=== PATIENT | male | born 2000 | race Caucasian/White ===

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

== ENCOUNTER 2020-11-20 21:42 | Observation (INO) ==
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
[2020-11-20 23:43] LABS: Basophils # (auto) 0.02 K/uL (0-0.2); Basophils % (auto) 0.3 %; Eosinophils # (auto) 0.13 K/uL (0-0.5); Eosinophils % (auto) 1.7 %; Hematocrit (blood only) 41.1 % (42-52); Hemoglobin 14.2 g/dL (14.0-18.0); Immature Granulocytes # (auto) 0.02 K/uL (0.00-0.02); Immature Granulocytes % (auto) 0.3 %; Lymphocytes # (auto) 1.66 K/uL (1.2-3.4); Lymphocytes % (auto) 21.2 %; Mean Corpuscular Hemoglobin 29.2 pg (25-34); Mean Corpuscular Hgb Conc 34.5 g/dL (32-36); Mean Corpuscular Volume 84.4 fL (80-100); Mean Platelet Volume 10.4 fL (7.4-10.4); Monocytes # (auto) 0.56 K/uL (0.11-0.59); Monocytes % (auto) 7.2 %; Neutrophils # (auto) 5.44 K/uL (1.4-6.5); Neutrophils % (auto) 69.3 %; Platelet Count 231 K/uL (130-400); RDW Coefficient of Variation 12.4 % (11.5-14.5); RDW Standard Deviation 37.9 fL (36.4-46.3); Red Blood Count 4.87 M/uL (4.7-6.1); White Blood Count 7.83 K/uL (4.8-10.8)
[2020-11-21 00:02] LABS: Albumin Level 4.5 gm/dl (3.4-5.0); BUN Creatinine Ratio 9.9 (10-20); Calcium 9.4 mg/dl (8.5-10.1); Creatinine Clr Calc Pharmacy 165.1 ml/min; Est GFR (African American) 146.8 ml/min; Est GFR (Non-African American) 126.7 ml/min; Potassium 3.8 mmol/L (3.5-5.1)
[2020-11-21 00:05] LABS: Albumin Globulin Ratio 1.6 (0.9-2); Bilirubin,Total 0.5 mg/dl (0.2-1); Globulin 2.9 gm/dl (2.5-4.0); Total Protein 7.4 gm/dl (6.4-8.2)
[2020-11-21] MEDS: SODIUM CHLORIDE 0.9% 500 ML IV SCH ×2 (01:10→05:43)
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
[2020-11-21] MEDS ORDERED: hydrOXYzine HCl 25 MG TAB PO PRN (05:30)
[2020-11-21] MEDS: SODIUM CHLORIDE 0.9% 1000ML 1,000 ML IV SCH ×3 (05:47→20:22)
--- NOTE | 2020-11-21 08:15 | Hospitalist Progress Note ---
Date of Service November 21, 2020 Assessment & Plan (1) Dysphagia: Plan: 20yo Male presents with Dysphagia PMH GERD fundoplication 1) Dysphagia Present since fundoplication, cannot swallow solids or liquids. In ED, placed on IVF. Patient cannot swallow oral medications. GI consulted, plan for EGD tomorrow with possible dilation. -if stricture not present, consider swallow study -continue IVF 2) Esophageal Stricture -see above 3) GERD -continue home medications when possible 4) Anxiety -continue home medications when possible -patient NPO, given ativan IV PRN 5) Austism Spectrum Disorder Patient is high functioning, understands condition. His mother is available for additional questions. (2) Esophageal stricture: (3) GERD (gastroesophageal reflux disease): (4) Anxiety: (5) Autism spectrum disorder: Admission and Anticipated Discharge Date Admission Date: November 21, 2020 Supervising Physician Co-Signing Physician Notes I personally examined the patient and verified all daily points of history and exam, discussed case, and agree with decision making with Dr Griffiths Still cannot tolerate any liquids whenever I see him. GI input appreciatedfor EGD tomorrow. Vitals noted, in general he is awake and alert pleasant no distress. HEENT normocephalic atraumatic mucous membranes moist breathing unlabored no accessory muscle use good effort. Skin shows no rashes no pallor or icterus. Dysphagia/food/liquid intoleranceagree with EGD, suspect stricture. Otherwise as above, appreciate GI input. Subjective 20yo Male presents with dysphagia ongoing since last night, cannot swallow solids or liquids. He has a long GI history, initially had GERD with fun doplication surgery in 2013, 3 years of feeding tube with continuous GERD, esophageal strictures with balloon procedures from GI. He states previous EGD showed active acid reflux, US and XR negative, barium swallow study performed doesn't remember results. He says he has had previous instances of dysphagia ever since his fundoplication, with solid foods but not usually liquids. He states the food feels like it gets caught in his throat before he brings it back up. Patient was seen at bedside, comfortable, didn't get to sleep last night no appetite normal bowel movements. He has met with GI and understands he is getting an EGD scheduled for tomorrow. PMH: high functioning autism, ravin fundoplication, GERD Review of Systems Constitutional: no fever and no chills Respiratory: no cough, no dyspnea and no dyspnea on exertion Cardiovascular: no chest pain and no palpitations Gastrointestinal: + dysphagia; no abdominal pain, no nausea, no vomiting, no constipation and no diarrhea/loose stools Integumentary: no rash Neurologic: no tingling, no numbness, no dizziness and no headache(s) Physical Exam Constitutional: well developed, well nourished, cooperative and comfortable Respiratory: normal respiratory effort, lungs clear to auscultation no respiratory distress and no cough Auscultation: no rales, no rhonchi and no wheezes Cardiovascular: RRR, no murmur, no edema Heart Sounds: normal S1 and normal S2; no gallop, no murmur and no cardiac rub Gastrointestinal (Abdomen): normal bowel sounds, soft, nontender, no hepatosplenomegaly Inspection/Auscultation: abdomen not distended Psychiatric: A+Ox3, euthymic affect Results & Data Results & Data ([facility]) Vital Signs (Past 12 Hours) Vital Signs Temp Pulse Pulse Resp BP BP BP 11/21/20 08:02 37.2 C 75 16 123/71 11/21/20 05:35 36.9 C 87 18 150/83 H 11/21/20 01:00 77 16 122/70 11/21/20 00:30 82 25 H 126/73 11/21/20 00:00 82 19 134/77 11/20/20 23:40 84 18 11/20/20 23:32 77 14 139/75 11/20/20 21:45 36.9 C 91 H 18 119/82 Pulse Ox 11/21/20 08:02 98 11/21/20 05:35 96 11/21/20 01:00 98 11/21/20 00:30 96 11/21/20 00:00 96 11/20/20 23:40 97 11/20/20 23:32 97 11/20/20 21:45 97 Laboratory Results 11/21/20 11/21/20 11/20/20 Range/Units 02:25 02:25 23:25 WBC (4.8-10.8) K/uL RBC (4.7-6.1) M/uL Hgb (14.0-18.0) g/dL Hct (42-52) % MCV (80-100) fL MCH (25-34) pg MCHC (32-36) g/dL RDW Std Deviation (36.4-46.3) fL RDW Coeff of Lisa (11.5-14.5) % Plt Count (130-400) K/uL MPV (7.4-10.4) fL Immature Gran % (Auto) % Neut % (Auto) % Lymph % (Auto) % [place] % (Auto) % Eos % (Auto) % Baso % (Auto) % Neut # (Auto) (1.4-6.5) K/uL Lymph # (Auto) (1.2-3.4) K/uL [place] # (Auto) (0.11-0.59) K/uL Eos # (Auto) (0-0.5) K/uL Baso # (Auto) (0-0.2) K/uL Immature Gran # (Auto) (0.00-0.02) K/uL Sodium 140 (136-145) mmol/L Potassium 3.8 (3.5-5.1) mmol/L Chloride 106 (98-107) mmol/L Carbon Dioxide 31 (21-32) mmol/L Anion Gap 3.0 (3-11) BUN 8 (7-18) mg/dl Creatinine 0.83 (0.6-1.4) mg/dl Est Cr Clr Drug Dosing 165.1 ml/min Est GFR ( Amer) 146.8 ml/min Est GFR (Non-Af Amer) 126.7 ml/min BUN/Creatinine Ratio 9.9 L (10-20) Glucose 87 (70-99) mg/dl Calcium 9.4 (8.5-10.1) mg/dl Total Bilirubin 0.5 (0.2-1) mg/dl AST 14 L (15-37) U/L ALT 21 (12-78) U/L Alkaline Phosphatase 112 (45-117) U/L Total Protein 7.4 (6.4-8.2) gm/dl Albumin 4.5 (3.4-5.0) gm/dl Globulin 2.9 (2.5-4.0) gm/dl Albumin/Globulin Ratio 1.6 (0.9-2) COVID-19 Eval Order Covid19 at [facility] SARS-CoV-2 (PCR) NEGATIVE (Negative) 11/20/20 Range/Units 23:25 WBC 7.83 (4.8-10.8) K/uL RBC 4.87 (4.7-6.1) M/uL Hgb 14.2 (14.0-18.0) g/dL Hct 41.1 L (42-52) % MCV 84.4 (80-100) fL MCH 29.2 (25-34) pg MCHC 34.5 (32-36) g/dL RDW Std Deviation 37.9 (36.4-46.3) fL RDW Coeff of Lisa 12.4 (11.5-14.5) % Plt Count 231 (130-400) K/uL MPV 10.4 (7.4-10.4) fL Immature Gran % (Auto) 0.3 % Neut % (Auto) 69.3 % Lymph % (Auto) 21.2 % [place] % (Auto) 7.2 % Eos % (Auto) 1.7 % Baso % (Auto) 0.3 % Neut # (Auto) 5.44 (1.4-6.5) K/uL Lymph # (Auto) 1.66 (1.2-3.4) K/uL [place] # (Auto) 0.56 (0.11-0.59) K/uL Eos # (Auto) 0.13 (0-0.5) K/uL Baso # (Auto) 0.02 (0-0.2) K/uL Immature Gran # (Auto) 0.02 (0.00-0.02) K/uL Sodium (136-145) mmol/L Potassium (3.5-5.1) mmol/L Chloride (98-107) mmol/L Carbon Dioxide (21-32) mmol/L Anion Gap (3-11) BUN (7-18) mg/dl Creatinine (0.6-1.4) mg/dl Est Cr Clr Drug Dosing ml/min Est GFR ( Amer) ml/min Est GFR (Non-Af Amer) ml/min BUN/Creatinine Ratio (10-20) Glucose (70-99) mg/dl Calcium (8.5-10.1) mg/dl Total Bilirubin (0.2-1) mg/dl AST (15-37) U/L ALT (12-78) U/L Alkaline Phosphatase (45-117) U/L Total Protein (6.4-8.2) gm/dl Albumin (3.4-5.0) gm/dl Globulin (2.5-4.0) gm/dl Albumin/Globulin Ratio (0.9-2) COVID-19 Eval Order SARS-CoV-2 (PCR) (Negative) Medications Administered Current Inpatient Medications Famotidine (Famotidine 20 Mg Tab) 20 mg PO BID ARIANNA Stop: 12/21/20 08:59 Last Admin: 11/21/20 11:14 Dose: Not Given Documented by: Fexofenadine HCl (Fexofenadine Hcl 180 Mg Tab) 180 mg PO DAILY ARIANNA Stop: 12/21/20 08:59 Last Admin: 11/21/20 11:14 Dose: Not Given Documented by: Guanfacine HCl (Guanfacine Hcl 1 Mg Tab) 1 mg PO BID ARIANNA Stop: 12/21/20 08:59 Last Admin: 11/21/20 11:14 Dose: Not Given Documented by: Sodium Chloride (Nss 1000ml) 1,000 mls @ 125 mls/hr IV .Q8H ARIANNA Stop: 12/21/20 05:44 Last Admin: 11/21/20 13:17 Dose: 125 mls/hr Documented by: Pantoprazole Sodium 40 mg/ (Syringe) 10 mls @ 5 mls/min IV BID ARIANNA Stop: 12/21/20 11:14 Last Admin: 11/21/20 11:39 Dose: 5 mls/min Documented by: Lorazepam (Ativan) 0.25 mg in 0.5 mls @ 0.5 mls/min IV Q8H PRN PRN Reason: Anxiety Stop: 12/21/20 12:31 Last Admin: 11/21/20 13:04 Dose: 0.5 mls/min Documented by: Lamotrigine (Lamotrigine 25 Mg Tab) 150 mg PO BID ARIANNA Stop: 12/21/20 08:59 Last Admin: 11/21/20 11:15 Dose: Not Given Documented by: Montelukast Sodium (Montelukast Sodium 10 Mg Tablet) 10 mg PO QPM ARIANNA Stop: 12/21/20 20:59 Multivitamins (Multivitamin Tab) 1 tab PO DAILY ARIANNA Stop: 12/21/20 08:59 Last Admin: 11/21/20 11:15 Dose: Not Given Documented by: Quetiapine Fumarate (Quetiapine Fumarate 200 Mg Tabcr) 400 mg PO QPM ARIANNA Stop: 12/21/20 20:59 Quetiapine Fumarate (Quetiapine Fumarate 50 Mg Tabcr) 100 mg PO QAM ARIANNA Stop: 12/21/20 08:59 Last Admin: 11/21/20 11:15 Dose: Not Given Documented by: Sertraline HCl (Sertraline Hcl 50 Mg Tablet) 75 mg PO DAILY ARIANNA Stop: 12/21/20 08:59 Last Admin: 11/21/20 11:15 Dose: Not Given Documented by: Trazodone HCl (Trazodone Hcl 100 Mg Tab) 100 mg PO HS [facility] Stop: 12/21/20 20:59 Resident Activity Tracking Resident Involvement: Resident Care Provided Care Provided: Adult Hospital Medicine (1) GERD (gastroesophageal reflux disease) Esophagitis presence: esophagitis presence not specified Qualified Code(s): K21.9 - Gastro-esophageal reflux disease without esophagitis
--- NOTE | 2020-11-21 08:44 | XRay Report ---
SOFT TISSUES NECK 2 VIEWS CLINICAL HISTORY: Dysphagia. FINDINGS: AP and lateral views of the soft tissues of the neck are obtained. No prior studies are jimi ilable for comparison at the time of dictation. The soft tissues of the neck are normal in appearance . The airway is patent. No radiodense foreign body is identified. The epiglottis is normal. The preve rtebral/retropharyngeal soft tissues are normal in appearance. The imaged cervical spine appears inta ct. Apical lung parenchyma is clear as imaged. IMPRESSION: No acute abnormality is identified. Electronically signed by: Jamel Garcia M.D. 11/21/2020 8:42 AM
--- NOTE | 2020-11-21 08:45 | XRay Report ---
KUB CLINICAL HISTORY: Dysphagia. FINDINGS: 2 AP supine abdominal radiographs are compared to study dated 09/05/2016. There is a nonobstr ucted abdominal bowel gas pattern. Moderate fecal retention is noted throughout the colon. No evidenc e of intraperitoneal free air is seen on these supine images. There are no abnormal abdominal calcifi cations. Tiny phleboliths are seen in the pelvis. The bony structures appear intact. IMPRESSION: No acute abnormality is identified. Electronically signed by: Jamel Garcia M.D. 11/21/2020 8:43 AM
[2020-11-21] MEDS: FEXOFENADINE HCL 180 MG TAB PO SCH (11:14)
[2020-11-21] MEDS: FAMOTIDINE 20 MG TAB PO SCH ×2 (11:14→19:28)
[2020-11-21] MEDS: guanFACINE HCL 1 MG TAB PO SCH ×2 (11:14→19:28)
[2020-11-21] MEDS: MULTIVITAMIN TAB PO SCH (11:15)
[2020-11-21] MEDS: SERTRALINE HCL 50 MG TABLET PO SCH (11:15)
[2020-11-21] MEDS: QUEtiapine FUMARATE 50 MG TABCR PO SCH (11:15)
[2020-11-21] MEDS: lamoTRIgine 25 MG TAB PO SCH ×2 (11:15→19:29)
[2020-11-21] MEDS: PANTOprazole 40 MG in SYRINGE 0 ML IV SCH ×2 (11:39→20:22)
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
[2020-11-21] MEDS: LORazepam 0.25 MG/0.5 ML VIAL IV PRN ×2 (13:04→22:34)
[2020-11-21] MEDS: QUEtiapine FUMARATE 200 MG TABCR PO SCH (19:29)
[2020-11-21] MEDS: traZODone HCL 100 MG TAB PO SCH (19:29)
[2020-11-21] MEDS: MONTELUKAST SODIUM 10 MG TABLET PO SCH (19:29)
--- NOTE | 2020-11-21 19:37 | Billing Data ---
Date of Service November 21, 2020 Coding Level of Care Code 10401 Subseq Hosp Care Lvl 2
--- NOTE | 2020-11-21 19:37 | Billing Data ---
Date of Service November 21, 2020 Coding Level of Care Code 01711 Subseq Obs Care Lvl 2 Comment disregard 232 - entered in error
--- NOTE | 2020-11-21 20:22 | Billing Data ---
Date of Service November 21, 2020 Coding Level of Care Code INT OBSERVATION CARE 70M LVL 3
[2020-11-22] MEDS ORDERED: ondansetron HCL 4 MG in DEXTROSE 5% 50 ML IV PRN (03:39)
[2020-11-22] MEDS: SODIUM CHLORIDE 0.9% 1000ML 1,000 ML IV SCH ×3 (04:13→22:03)
[2020-11-22] MEDS: ONDANSETRON INJ 2 MG/ML 2 ML VIAL IV PRN ×4 (04:13→23:13)
[2020-11-22 07:47] LABS: Basophils # (auto) 0.01 K/uL (0-0.2); Basophils % (auto) 0.2 %; Eosinophils # (auto) 0.11 K/uL (0-0.5); Eosinophils % (auto) 1.7 %; Hematocrit (blood only) 39.8 % (42-52); Hemoglobin 13.6 g/dL (14.0-18.0); Immature Granulocytes # (auto) 0.01 K/uL (0.00-0.02); Immature Granulocytes % (auto) 0.2 %; Lymphocytes # (auto) 1.43 K/uL (1.2-3.4); Lymphocytes % (auto) 21.6 %; Mean Corpuscular Hemoglobin 28.3 pg (25-34); Mean Corpuscular Hgb Conc 34.2 g/dL (32-36); Mean Corpuscular Volume 82.9 fL (80-100); Mean Platelet Volume 10.2 fL (7.4-10.4); Monocytes # (auto) 0.56 K/uL (0.11-0.59); Monocytes % (auto) 8.5 %; Neutrophils # (auto) 4.49 K/uL (1.4-6.5); Neutrophils % (auto) 67.8 %; Platelet Count 217 K/uL (130-400); RDW Standard Deviation 36.2 fL (36.4-46.3); White Blood Count 6.61 K/uL (4.8-10.8)
[2020-11-22] MEDS: lamoTRIgine 25 MG TAB PO SCH ×2 (08:11→22:05)
[2020-11-22] MEDS: guanFACINE HCL 1 MG TAB PO SCH ×2 (08:11→22:05)
[2020-11-22] MEDS: FEXOFENADINE HCL 180 MG TAB PO SCH (08:11)
[2020-11-22] MEDS: MULTIVITAMIN TAB PO SCH (08:11)
[2020-11-22] MEDS: FAMOTIDINE 20 MG TAB PO SCH ×2 (08:11→22:06)
[2020-11-22] MEDS: SERTRALINE HCL 50 MG TABLET PO SCH (08:12)
[2020-11-22] MEDS: QUEtiapine FUMARATE 50 MG TABCR PO SCH (08:12)
[2020-11-22] MEDS: PANTOprazole 40 MG in SYRINGE 0 ML IV SCH ×2 (08:13→22:06)
[2020-11-22 08:14] LABS: BUN Creatinine Ratio 18.7 (10-20); Blood Urea Nitrogen 12 mg/dl (7-18); Calcium 8.7 mg/dl (8.5-10.1); Carbon Dioxide 24 mmol/L (21-32); Chloride 105 mmol/L (98-107); Creatinine Clr Calc Pharmacy 210.8 ml/min; Est GFR (African American) > 150.0 ml/min; Est GFR (Non-African American) 140.1 ml/min; Glucose 62 mg/dl (70-99); Potassium 4.1 mmol/L (3.5-5.1); Sodium 137 mmol/L (136-145)
[2020-11-22 08:15] LABS: Phosphorus 3.9 mg/dl (2.5-4.9)
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
--- NOTE | 2020-11-22 09:24 | Gastroenterology Progress Note ---
Date of Service November 22, 2020 Assessment & Plan (1) Globus sensation: (2) GERD (gastroesophageal reflux disease): (3) Dysphagia: Plan: Pt is a 20 y/o male w hx of GERD s/p fundoplication w re-do, hx of J tube placement, currently admitted w c/o dysphagia and globus sensation. - PPI IV BID - IVF support - Plan for EGD w possible dilation today Admission and Anticipated Discharge Date Admission Date: November 21, 2020 Supervising Physician Co-Signing Physician Notes I saw and evaluated the patient this morning. He has a history of solid food dysphagia and now liquid dysphagia, upper endoscopy has been requested for further evaluation. The patient does have a fairly complicated history which includes a fundoplication at an early age in addition to multiple occurrences of feeding tube placements. We have discussed the risks of upper endoscopy to include bleeding, infection, perforation and need for follow-up studies. Subjective Pt having acid reflux and some nausea. No vomiting this AM. NPO for EGD today Review of Systems Review of Systems: All systems reviewed & are unremarkable except as noted in HPI & below Physical Exam 2 Constitutional: WD/WN, vitals as above well groomed, cooperative and comfortable Eyes: PERRL, conjunctivae normal, anicteric sclerae ENMT: external ear and nose normal, oropharynx normal Respiratory: normal respiratory effort, lungs clear to auscultation Cardiovascular: RRR, no murmur, no edema Gastrointestinal (Abdomen): normal bowel sounds, soft, nontender, no hepatosplenomegaly Skin: no rashes, warm and dry no jaundice Psychiatric: A+Ox3, euthymic affect Lymphatic: no lymphedema Results & Data ([facility]) Vital Signs (Past 12 Hours) Vital Signs Temp Pulse Resp BP BP Pulse Ox 11/22/20 07:51 36.6 C 84 16 122/67 98 11/21/20 23:07 36.8 C 95 H 18 129/69 96 (1) GERD (gastroesophageal reflux disease) Esophagitis presence: esophagitis presence not specified Qualified Code(s): K21.9 - Gastro-esophageal reflux disease without esophagitis
[2020-11-22] MEDS ORDERED: fentaNYL citrate 100 MCG/2 ML VIAL ONE (09:47)
[2020-11-22] MEDS ORDERED: PROPOFOL IV EMULSION 10 MG/ML 20 ML VIAL IV ONE (10:03)
[2020-11-22] MEDS ORDERED: LIDOCAINE 2% 2 ML VIAL/AMP(20MG/ML) INFIL ONE (10:03)
--- NOTE | 2020-11-22 10:05 | Anesthesiology Progress Note ---
Date of Service November 22, 2020 Anesthesia Post Procedure Vital Signs Vital Signs: Temp Pulse Resp BP BP Pulse Ox 11/22/20 09:33 36.6 C 84 18 145/76 H 99 11/22/20 07:51 36.6 C 84 16 122/67 98 11/21/20 23:07 36.8 C 95 H 18 129/69 96 11/21/20 15:22 37.0 C 88 16 119/61 96 Transfer of Care Handoff Completed per policy Notes Mental Status: alert / awake / arousable and participated in evaluation Patient Amnestic to Procedure: Yes Nausea / Vomiting: adequately controlled Pain: adequately controlled Airway Patency, RR, SpO2: stable & adequate BP & HR: stable & adequate Hydration State: stable & adequate Anesthetic Complications: no major complications apparent and Pt Satisfied with anesthetic care
--- NOTE | 2020-11-22 10:57 | GI REPORT ---
Patient Name: Roman Maradiaga Procedure Date: 11/22/2020 9:34 AM Date of : 2000 Admit Type: Inpatient Age: 20 Gender: Male Attending MD: Frantz Hernandez DO Procedure: Upper GI endoscopy Providers: Frantz Hernandez DO Referring MD: Jan Gordillo MD Indications: Dysphagia Medicines: Monitored Anesthesia Care Complications: No immediate complications. Estimated blood loss: Minimal. Estimated Blood Loss: Estimated blood loss was minimal. Procedure: Pre-Anesthesia Assessment: - Prior to the procedure, a History and Physical was performed, and patient medications, allergies and sensitivities were reviewed. The patient's tolerance of previous anesthesia was reviewed. - The risks and benefits of the procedure and the sedation options and risks were discussed with the patient. All questions were answered and informed consent was obtained. - Patient identification and proposed procedure were verified prior to the procedure by the physician, the nurse and the parlor maid. The procedure was verified in the pre-procedure area in the procedure room. - Pre-procedure physical examination revealed no contraindications to sedation. - ASA Grade Assessment: II - A patient with mild systemic disease. - After reviewing the risks and benefits, the patient was deemed in satisfactory condition to undergo the procedure. - The anesthesia plan was to use monitored anesthesia care (MAC). - Immediately prior to administration of medications, the patient was re-assessed for adequacy to receive sedatives. - The heart rate, respiratory rate, oxygen saturations, blood pressure, adequacy of pulmonary ventilation, and response to care were monitored throughout the procedure. - The physical status of the patient was re-assessed after the procedure. After obtaining informed consent, the endoscope was passed under direct vision. Throughout the procedure, the patient's blood pressure, pulse, and oxygen saturations were monitored continuously. The Endoscope was introduced through the mouth, and advanced to the third part of duodenum. The upper GI endoscopy was accomplished without difficulty. The patient tolerated the procedure well. Findings: No endoscopic abnormality was evident in the esophagus to explain the patient's complaint of dysphagia. It was decided, however, to proceed with dilation of the entire esophagus. A guidewire was placed and the scope was withdrawn. Dilation was performed with a Savary dilator with no resistance at 54 Fr. The dilation site was examined following endoscope reinsertion and showed no change. Biopsies were taken with a cold forceps for histology. The pathology specimen was placed into Bottle A. Estimated blood loss was minimal. Evidence of a Yamilet fundoplication was found in the cardia. The wrap appeared intact. This was traversed. A 5 mm healed ulcer was found on the greater curvature of the gastric body. The scar tissue was healthy in appearance. The examined duodenum was normal. Impression: - No endoscopic esophageal abnormality to explain patient's dysphagia. Esophagus dilated to 54 Fr. Biopsied. - A Yamilet fundoplication was found. The wrap appears intact. - Scar in the gastric body (greater curvature) consistent with prior feeding tube. - Normal examined duodenum. Recommendation: - [facility]. - Advance diet as tolerated today. - Await pathology results. - Return to referring physician, Dr. Nur as previously scheduled. Frantz Hernandez D.O. Frantz Hernandez, 11/22/2020 10:57:02 AM This report has been signed electronically. Note Initiated On: 11/22/2020 9:34 AM Number of Addenda: 0 I attest to the content of the Intraoperative Record and orders documented therein, exceptions below {[id number]}
[2020-11-22] MEDS ORDERED: ACETAMINOPHEN SUSP 325 MG/10.15 ML UDC PO PRN (16:17)
[2020-11-22] MEDS: LORazepam 0.25 MG/0.5 ML VIAL IV PRN ×2 (16:27→23:22)
--- NOTE | 2020-11-22 17:18 | Hospitalist Progress Note ---
Date of Service November 22, 2020 Assessment & Plan (1) Dysphagia: Plan: 20yo Male presents with Dysphagia PMH GERD fundoplication 1) Dysphagia Present since fundoplication, cannot swallow solids or liquids. In ED, placed on IVF. Patient cannot swallow oral medications. GI consulted, performed EGD, found nothing on exam, dilated esophagus and took biopsies, believe symptoms may be psychogenic. Speech therapy consulted, noted patient swallowed saliva from chewing gum, will perform barium swallow test tomorrow. -NPO discontinued, placed on regular diet -continue IVF 2) Esophageal Stricture -see above 3) GERD -continue home medications when possible 4) Anxiety -continue home medications when possible -ordered ativan IV PRN 5) Austism Spectrum Disorder Patient is high functioning, understands condition. His mother is available for additional questions. (2) Esophageal stricture: (3) GERD (gastroesophageal reflux disease): (4) Anxiety: (5) Autism spectrum disorder: Admission and Anticipated Discharge Date Admission Date: November 21, 2020 Supervising Physician Co-Signing Physician Notes I personally examined the patient and verified all daily points of history and exam, discussed case, and agree with decision making with Dr Griffiths Seen post EGD. Later still having dysphagia. Apparently able to swallow s aliva. Vitals noted, in general he is awake and alert pleasant no distress. HEENT normocephalic atraumatic mucous membranes moist breathing unlabored no accessory muscle use good effort. Skin shows no rashes no pallor or icterus. Dysphagia/food/liquid intoleranceEGD without striking findings. We'll utilize barium swallow to evaluate motility. Given that most of it is a globus sensation, may be more potentially psychogenic/anxiety related Subjective 20yo Male presents with dysphagia ongoing since two nights ago, cannot swallow solids or liquids. He has a long GI history, initially had GERD with fundoplication surgery in 2014, 3 years of feeding tube with continuous GERD, esophageal strictures with balloon procedures from GI. He states previous EGD showed active acid reflux, US and XR negative, barium swallow study performed doesn't remember results. He says he has had previous instances of dysphagia ever since his fundoplication, with solid foods but not usually liquids. He states the food feels like it gets caught in his throat before he brings it back up. Patient was seen at bedside, comfortable, slept well no appetite normal urination no bowel movements. Gi performed his EGD this morning, did not find anything significant but dilated his esophagus and took biopsies. Patient was placed on regular diet afterwards, said he still could not swallow, items stuck in throat. Speech therapy was consulted, noted patient was swallowing saliva from chewing gum. Patient has agreed to barium swallow test tomorrow. PMH: high functioning autism, ravin fundoplication, GERD Review of Systems Constitutional: no fever and no chills Respiratory: no cough, no dyspnea and no dyspnea on exertion Cardiovascular: no chest pain and no palpitations Gastrointestinal: + dysphagia; no abdominal pain, no nausea, no vomiting, no constipation and no diarrhea/loose stools Integumentary: no rash Neurologic: no tingling, no numbness, no dizziness and no headache(s) Physical Exam Constitutional: well developed, well nourished, cooperative and comfortable Respiratory: normal respiratory effort, lungs clear to auscultation no respiratory distress and no cough Auscultation: no rales, no rhonchi and no wheezes Cardiovascular: RRR, no murmur, no edema Heart Sounds: normal S1 and normal S2; no gallop, no murmur and no cardiac rub Gastrointestinal (Abdomen): normal bowel sounds, soft, nontender, no hepatosplenomegaly Inspection/Auscultation: abdomen not distended Psychiatric: A+Ox3, euthymic affect Results & Data Results & Data ([facility]) Vital Signs (Past 12 Hours) Vital Signs Temp Pulse Resp BP BP Pulse Ox 11/22/20 15:27 36.8 C 71 16 125/72 98 11/22/20 10:31 84 20 126/70 98 11/22/20 10:16 79 18 116/65 96 11/22/20 09:59 83 12 105/53 L 96 11/22/20 09:33 36.6 C 84 18 145/76 H 99 11/22/20 07:51 36.6 C 84 16 122/67 98 Laboratory Results 11/22/20 11/22/20 Range/Units 07:29 07:29 WBC 6.61 (4.8-10.8) K/uL RBC 4.80 (4.7-6.1) M/uL Hgb 13.6 L (14.0-18.0) g/dL Hct 39.8 L (42-52) % MCV 82.9 (80-100) fL MCH 28.3 (25-34) pg MCHC 34.2 (32-36) g/dL RDW Std Deviation 36.2 L (36.4-46.3) fL RDW Coeff of Lisa 12.0 (11.5-14.5) % Plt Count 217 (130-400) K/uL MPV 10.2 (7.4-10.4) fL Immature Gran % (Auto) 0.2 % Neut % (Auto) 67.8 % Lymph % (Auto) 21.6 % Terrell % (Auto) 8.5 % Eos % (Auto) 1.7 % Baso % (Auto) 0.2 % Neut # (Auto) 4.49 (1.4-6.5) K/uL Lymph # (Auto) 1.43 (1.2-3.4) K/uL Terrell # (Auto) 0.56 (0.11-0.59) K/uL Eos # (Auto) 0.11 (0-0.5) K/uL Baso # (Auto) 0.01 (0-0.2) K/uL Immature Gran # (Auto) 0.01 (0.00-0.02) K/uL Sodium 137 (136-145) mmol/L Potassium 4.1 (3.5-5.1) mmol/L Chloride 105 (98-107) mmol/L Carbon Dioxide 24 (21-32) mmol/L Anion Gap 8.0 (3-11) BUN 12 (7-18) mg/dl Creatinine 0.65 (0.6-1.4) mg/dl Est Cr Clr Drug Dosing 210.8 ml/min Est GFR ( Amer) > 150.0 ml/min Est GFR (Non-Af Amer) 140.1 ml/min BUN/Creatinine Ratio 18.7 (10-20) Glucose 62 L (70-99) mg/dl Calcium 8.7 (8.5-10.1) mg/dl Phosphorus 3.9 (2.5-4.9) mg/dl Magnesium 2.0 (1.8-2.4) mg/dl Medications Administered Current Inpatient Medications Acetaminophen (Acetaminophen Susp 325 Mg/10.15 Ml Udc) 650 mg PO Q6H PRN PRN Reason: Pain Stop: 12/22/20 16:16 Last Admin: 11/22/20 16:27 Dose: 650 mg Documented by: Famotidine (Famotidine 20 Mg Tab) 20 mg PO BID ARIANNA Stop: 12/21/20 08:59 Last Admin: 11/22/20 08:11 Dose: Not Given Documented by: Fexofenadine HCl (Fexofenadine Hcl 180 Mg Tab) 180 mg PO DAILY ARIANNA Stop: 12/21/20 08:59 Last Admin: 11/22/20 08:11 Dose: Not Given Documented by: Guanfacine HCl (Guanfacine Hcl 1 Mg Tab) 1 mg PO BID ARIANNA Stop: 12/21/20 08:59 Last Admin: 11/22/20 08:11 Dose: Not Given Documented by: Sodium Chloride (Nss 1000ml) 1,000 mls @ 125 mls/hr IV .Q8H ARIANNA Stop: 12/21/20 05:44 Last Admin: 11/22/20 13:13 Dose: 125 mls/hr Documented by: Pantoprazole Sodium 40 mg/ (Syringe) 10 mls @ 5 mls/min IV BID ARIANNA Stop: 12/21/20 11:14 Last Admin: 11/22/20 08:13 Dose: 5 mls/min Documented by: Lorazepam (Ativan) 0.25 mg in 0.5 mls @ 0.5 mls/min IV Q8H PRN PRN Reason: Anxiety Stop: 12/21/20 12:31 Last Admin: 11/22/20 16:27 Dose: 0.5 mls/min Documented by: Lamotrigine (Lamotrigine 25 Mg Tab) 150 mg PO BID ARIANNA Stop: 12/21/20 08:59 Last Admin: 11/22/20 08:11 Dose: Not Given Documented by: Montelukast Sodium (Montelukast Sodium 10 Mg Tablet) 10 mg PO QPM ARIANNA Stop: 12/21/20 20:59 Last Admin: 11/21/20 19:29 Dose: Not Given Documented by: Multivitamins (Multivitamin Tab) 1 tab PO DAILY ARIANNA Stop: 12/21/20 08:59 Last Admin: 11/22/20 08:11 Dose: Not Given Documented by: Ondansetron HCl (Ondansetron Inj 2 Mg/Ml 2 Ml Vial) 4 mg IV Q6H PRN PRN Reason: Nausea And Vomiting Stop: 12/22/20 04:04 Last Admin: 11/22/20 16:54 Dose: 4 mg Documented by: Quetiapine Fumarate (Quetiapine Fumarate 200 Mg Tabcr) 400 mg PO QPM ARIANNA Stop: 12/21/20 20:59 Last Admin: 11/21/20 19:29 Dose: Not Given Documented by: Quetiapine Fumarate (Quetiapine Fumarate 50 Mg Tabcr) 100 mg PO QAM [facility] Stop: 12/21/20 08:59 Last Admin: 11/22/20 08:12 Dose: Not Given Documented by: Sertraline HCl (Sertraline Hcl 50 Mg Tablet) 75 mg PO DAILY [facility] Stop: 12/21/20 08:59 Last Admin: 11/22/20 08:12 Dose: Not Given Documented by: Trazodone HCl (Trazodone Hcl 100 Mg Tab) 100 mg PO HS [facility] Stop: 12/21/20 20:59 Last Admin: 11/21/20 19:29 Dose: Not Given Documented by: Resident Activity Tracking Resident Involvement: Resident Care Provided Care Provided: Adult Hospital Medicine (1) GERD (gastroesophageal reflux disease) Esophagitis presence: esophagitis presence not specified Qualified Code(s): K21.9 - Gastro-esophageal reflux disease without esophagitis
--- NOTE | 2020-11-22 19:15 | Billing Data ---
Date of Service November 22, 2020 Coding Level of Care Code 11903 Subseq Hosp Care Lvl 3
[2020-11-22] MEDS: QUEtiapine FUMARATE 200 MG TABCR PO SCH (22:05)
[2020-11-22] MEDS: traZODone HCL 100 MG TAB PO SCH (22:06)
[2020-11-22] MEDS: MONTELUKAST SODIUM 10 MG TABLET PO SCH (22:06)
[2020-11-23] MEDS: SODIUM CHLORIDE 0.9% 1000ML 1,000 ML IV SCH ×3 (06:11→22:29)
--- NOTE | 2020-11-23 06:43 | Hospitalist Progress Note ---
Date of Service November 23, 2020 Assessment & Plan (1) Dysphagia: Plan: 20yo Male presents with Dysphagia PMH GERD fundoplication 1) Dysphagia Present since fundoplication, cannot swallow solids or liquids. In ED, placed on IVF. Patient cannot swallow oral medications. GI consulted, performed EGD, found nothing on exam, dilated esophagus and took biopsies, believe symptoms may be psychogenic. Speech therapy consulted, noted patient swallowed saliva from chewing gum, performed barium swallow test. Patient was uncooperative, no imaging obtained. -NPO discontinued, placed on regular diet -continue IVF -Per speech therapy observation, patient esophageal motility likely intact from observed swallows -plan to observe how patient ingests ice cream 2) Esophageal Stricture -see above 3) GERD -continue home medications when possible 4) Anxiety -continue home medications when possible -ordered ativan IV PRN 5) Austism Spectrum Disorder Patient is high functioning, understands condition. (2) Esophageal stricture: (3) GERD (gastroesophageal reflux disease): (4) Anxiety: (5) Autism spectrum disorder: Admission and Anticipated Discharge Date Admission Date: November 21, 2020 Supervising Physician Co-Signing Physician Notes I personally examined the patient and verified all daily points of history and exam, discussed case, and agree with decision making with Dr Griffiths Seen at the bedsidefeeling about the same. Notes that anything he tries to eat hurts, and or comes back up. Mother at the bedside as well. Vitals noted, in general he is awake and alert pleasant no distress, although he appears somewhat irritated with his situation.. HEENT normocephalic atraumatic mucous membranes moist breathing unlabored no accessory muscle use good effort. Skin shows no rashes no pallor or icterus. Abdomen soft without notable tenderness, no notable trigger points either Dysphagia/food/liquid intoleranceEGD without striking findings, while imaging of swallowing was not able to be completed with much diagnostic utility, and discussionsspeech therapy did not have any real suspicion of motility issues. Further, patient is chewing gum frequently and seems to be able to handle the secretions/saliva from that. All signs strongly point to a functional upper GI issue. Discussed this extensively with patient and mother. Mom actually expressed a fairly good understanding of what I was explaining. Patientlikely due to his autismdid express a good deal of very concrete and very proximal thinking, which may make it difficult for him to try to overcome this. We did discuss the potential for an NG tube for feeding for a while, none of us are particularly keen on this plan. We also discussed why IV nutrition would be quite dangerous in this situationwe all agreed that should not be an option. Discussed eating/drinking what is tolerable, started to discuss what calorie goals would be. Discussed the potential for later development of abdominal wall trigger pointsalthough I see none now. Trial of cyproheptadinewe discussed potential sedation risk particularly with his other medications, all in agreement it is worth a trialwe will start low at 2 mg twice daily, but titrate up every few days if needed. Trial of lidocaine mouth and throat to see if that may help for a little whilewe discussed that it may be useful, it may not help, but if it does help we will also have to be cautious about the potential for ongoing dosing due to potential risk of systemic absorption. For now keep in the hospital until it appears he will be safe enough to eat and drink to maintain nutrition and hydration. Time in approximately 6:10 PM, time out approximately 7 PM, greater than 30 minutes [id number]. Subjective 20yo Male presents with dysphagia ongoing since two nights ago, cannot swallow solids or liquids. He has a long GI history, initially had GERD with fundoplication surgery in 2014, 3 years of feeding tube with continuous GERD, esophageal strictures with balloon procedures from GI. He states previous EGD showed active acid reflux, US and XR negative, barium swallow study performed doesn't remember results. He says he has had previous instances of dysphagia ever since his fundoplication, with solid foods but not usually liquids. He states the food feels like it gets caught in his throat before he brings it back up. Gi performed his EGD, did not find anything significant but dilated his esophagus and took biopsies. Speech therapy consulted, noted patient could swallow saliva, attempted to have patient undergo barium swallow test. Patient did not cooperate with exam, no imaging obtained. Patient was seen at bedside, comfortable, slept well no appetite normal urination no bowel movements. Patient states he can swallow medication and soft food, and later brings it back up partially digested with gastric acid. He state s he is able to keep small fluids down. Mother arrived in afternoon. When questioning patient of his symptoms he again stated he could not swallow anything. Family and patient were educated that patient's dysphagia is more likely a somatic dysfunction, and that using an NG tube is likely not going to help. Mother wonders if patient's symptoms are secondary to GERD or gastroparesis, appears somewhat anxious. PMH: high functioning autism, ravin fundoplication, GERD Review of Systems Constitutional: no fever and no chills Respiratory: no cough, no dyspnea and no dyspnea on exertion Cardiovascular: no chest pain and no palpitations Gastrointestinal: + dysphagia; no abdominal pain, no nausea, no vomiting, no constipation and no diarrhea/loose stools Integumentary: no rash Neurologic: no tingling, no numbness, no dizziness and no headache(s) Physical Exam Constitutional: well developed, well nourished, cooperative and comfortable Respiratory: normal respiratory effort, lungs clear to auscultation no respiratory distress and no cough Auscultation: no rales, no rhonchi and no wheezes Cardiovascular: RRR, no murmur, no edema Heart Sounds: normal S1 and normal S2; no gallop, no murmur and no cardiac rub Gastrointestinal (Abdomen): normal bowel sounds, soft, nontender, no hepatosplenomegaly Inspection/Auscultation: abdomen not distended Psychiatric: A+Ox3, euthymic affect Results & Data Results & Data ([facility]) Vital Signs (Past 12 Hours) Vital Signs Temp Pulse Resp BP Pulse Ox 11/22/20 22:50 36.8 C 81 16 137/73 97 Medications Administered Current Inpatient Medications Acetaminophen (Acetaminophen Susp 325 Mg/10.15 Ml Udc) 650 mg PO Q6H PRN PRN Reason: Pain Stop: 12/22/20 16:16 Last Admin: 11/22/20 16:27 Dose: 650 mg Documented by: Famotidine (Famotidine 20 Mg Tab) 20 mg PO BID ARIANNA Stop: 12/21/20 08:59 Last Admin: 11/23/20 07:25 Dose: 20 mg Documented by: Fexofenadine HCl (Fexofenadine Hcl 180 Mg Tab) 180 mg PO DAILY ARIANNA Stop: 12/21/20 08:59 Last Admin: 11/23/20 07:23 Dose: 180 mg Documented by: Guanfacine HCl (Guanfacine Hcl 1 Mg Tab) 1 mg PO BID ARIANNA Stop: 12/21/20 08:59 Last Admin: 11/23/20 07:23 Dose: 1 mg Documented by: Sodium Chloride (Nss 1000ml) 1,000 mls @ 125 mls/hr IV .Q8H ARIANNA Stop: 12/21/20 05:44 Last Admin: 11/23/20 14:08 Dose: 125 mls/hr Documented by: Pantoprazole Sodium 40 mg/ (Syringe) 10 mls @ 5 mls/min IV BID ARIANNA Stop: 12/21/20 11:14 Last Admin: 11/23/20 07:23 Dose: 5 mls/min Documented by: Lorazepam (Ativan) 0.25 mg in 0.5 mls @ 0.5 mls/min IV Q8H PRN PRN Reason: Anxiety Stop: 12/21/20 12:31 Last Admin: 11/22/20 23:22 Dose: 0.5 mls/min Documented by: Lamotrigine (Lamotrigine 25 Mg Tab) 150 mg PO BID ARIANNA Stop: 12/21/20 08:59 Last Admin: 11/23/20 07:23 Dose: 150 mg Documented by: Montelukast Sodium (Montelukast Sodium 10 Mg Tablet) 10 mg PO QPM ARIANNA Stop: 12/21/20 20:59 Last Admin: 11/22/20 22:06 Dose: 10 mg Documented by: Multivitamins (Multivitamin Tab) 1 tab PO DAILY ARIANNA Stop: 12/21/20 08:59 Last Admin: 11/23/20 07:25 Dose: 1 tab Documented by: Ondansetron HCl (Ondansetron Inj 2 Mg/Ml 2 Ml Vial) 4 mg IV Q6H PRN PRN Reason: Nausea And Vomiting Stop: 12/22/20 04:04 Last Admin: 11/22/20 23:13 Dose: 4 mg Documented by: Quetiapine Fumarate (Quetiapine Fumarate 200 Mg Tabcr) 400 mg PO QPM ARIANNA Stop: 12/21/20 20:59 Last Admin: 11/22/20 22:05 Dose: 400 mg Documented by: Quetiapine Fumarate (Quetiapine Fumarate 50 Mg Tabcr) 100 mg PO QAM [facility] Stop: 12/21/20 08:59 Last Admin: 11/23/20 07:24 Dose: 100 mg Documented by: Sertraline HCl (Sertraline Hcl 50 Mg Tablet) 75 mg PO DAILY ARIANNA Stop: 12/21/20 08:59 Last Admin: 11/23/20 07:24 Dose: 75 mg Documented by: Trazodone HCl (Trazodone Hcl 100 Mg Tab) 100 mg PO HS ARIANNA Stop: 12/21/20 20:59 Last Admin: 11/22/20 22:06 Dose: 100 mg Documented by: Resident Activity Tracking Resident Involvement: Resident Care Provided Care Provided: Adult Hospital Medicine (1) GERD (gastroesophageal reflux disease) Esophagitis presence: esophagitis presence not specified Qualified Code(s): K21.9 - Gastro-esophageal reflux disease without esophagitis
[2020-11-23] MEDS: lamoTRIgine 25 MG TAB PO SCH ×2 (07:23→20:26)
[2020-11-23] MEDS: FEXOFENADINE HCL 180 MG TAB PO SCH (07:23)
[2020-11-23] MEDS: guanFACINE HCL 1 MG TAB PO SCH ×2 (07:23→20:27)
[2020-11-23] MEDS: PANTOprazole 40 MG in SYRINGE 0 ML IV SCH ×2 (07:23→20:20)
[2020-11-23] MEDS: SERTRALINE HCL 50 MG TABLET PO SCH (07:24)
[2020-11-23] MEDS: QUEtiapine FUMARATE 50 MG TABCR PO SCH (07:24)
[2020-11-23] MEDS: FAMOTIDINE 20 MG TAB PO SCH ×2 (07:25→20:26)
[2020-11-23] MEDS: MULTIVITAMIN TAB PO SCH (07:25)
--- NOTE | 2020-11-23 13:41 | Fluoroscopy Report ---
[place] barium swallow w/o air CLINICAL HISTORY: r/o esophageal dysfunction; globus sensation, hx Yamilet COMPARISON STUDY: Upper GI study dated 03/23/2017 FLUOROSCOPY TIME: 28 seconds. 190 for a dose of cine images were acquired. FINDINGS: The patient was uncooperative, and the examination could not be completed. The provided images reveal no evidence of aspiration. No esophageal masses were visualized on the limited images. IMPRESSION: 1. The patient was uncooperative and the examination could not be completed 2. No aspiration was identified the provided images. No esophageal masses were visualized on the limi sriram images. ACT 112: Negative or not required by law. Electronically signed by: Glenn Perdomo M.D. 11/23/2020 1:40 PM
[2020-11-23] MEDS ORDERED: LIDOCAINE VISCOUS 2% 15 ML UDC PO ONE (18:47)
--- NOTE | 2020-11-23 19:19 | Billing Data ---
Date of Service November 23, 2020 Coding Level of Care Code 54663 Subseq Obs Care Lvl 3
--- NOTE | 2020-11-23 19:19 | Billing Data ---
Date of Service November 23, 2020 Coding Level of Care Code 74800 Prolonged Care (int'l)
[2020-11-23] MEDS: CYPROHEPTADINE HCL 4 MG TAB PO SCH (20:26)
[2020-11-23] MEDS: MONTELUKAST SODIUM 10 MG TABLET PO SCH (20:27)
[2020-11-23] MEDS: traZODone HCL 100 MG TAB PO SCH (20:27)
[2020-11-23] MEDS: QUEtiapine FUMARATE 200 MG TABCR PO SCH (20:28)
[2020-11-24] MEDS: CYPROHEPTADINE HCL 4 MG TAB PO SCH (05:50)
[2020-11-24] MEDS: SODIUM CHLORIDE 0.9% 1000ML 1,000 ML IV SCH (06:26)
[2020-11-24] MEDS: MULTIVITAMIN TAB PO SCH (09:14)
[2020-11-24] MEDS: guanFACINE HCL 1 MG TAB PO SCH (09:14)
[2020-11-24] MEDS: QUEtiapine FUMARATE 50 MG TABCR PO SCH (09:14)
[2020-11-24] MEDS: SERTRALINE HCL 50 MG TABLET PO SCH (09:14)
[2020-11-24] MEDS: lamoTRIgine 25 MG TAB PO SCH (09:14)
[2020-11-24] MEDS: PANTOprazole 40 MG in SYRINGE 0 ML IV SCH (09:14)
[2020-11-24] MEDS: FAMOTIDINE 20 MG TAB PO SCH (09:14)
[2020-11-24 15:54] VITALS: PULSE 87; TEMP 98.2; O2SAT 95
[2020-11-24 16:08] VITALS: BP 137/73
--- NOTE | 2020-11-24 16:54 | Discharge Summary ---
Date of Service November 24, 2020 Admission HPI Per Admitting Provider Roman Maradiaga is a 20-year-old male with an extensive gastrointestinal surgical history; who presents for 2-day concern of globus sensation/dysphagia with solids and liquids. Over the last day and a half has noticed that when attempting to drink any liquids he has had this feeling of a catching sensation and rapid need to vomit in order to clear. The sensation does not go away with time following drinking. Has had a longstanding history of solid food dysphagia and discomfort, however has never been really concerned about this as he will be able to take in liquids and his medications without any problem. Is followed by [facility] locally and has had multiple GI procedures in [place]. Principal Diagnosis Dysphagia Discharge Exam Constitutional WD/WN, vitals as above ENMT external ear and nose normal, oropharynx normal Respiratory normal respiratory effort, lungs clear to auscultation Cardiovascular RRR, no murmur, no edema Discharge Data Allergies Allergy/AdvReac Type Severity Reaction Status Date / Time No Known Allergies Allergy NONE Verified 11/22/20 09:32 Consultations 11/21/20 01:42 ED Decision to Admit Stat 11/21/20 05:30 Consult Gastroenterology Routine Procedures Performed Operation Date: 11/22/20 16:30 Actual Procedures p EGD Biopsy [place] - Frantz Hernandez DO Hospital Course (1) Dysphagia: Dysphagia Presented to ED with inability to swallow solids or liquids. Problem has been recurrent since undergoing fundoplication procedure. Upon admission, GI was consulted, EGD was performed showing no esophageal or duodenal abnormality, intact wrap from fundoplication, and a scar in the gastric body consistent with prior feeding tube. Speech therapy consulted for a barium swallow test but was unable to be performed because the patient was uncooperative. Limited imaging from exam showed no aspiration nor esophageal masses. Patient began NPO; last night was given oral lidocaine for an ice cream trial. Patient tolerated test well and attempted a regular diet this morning which he also tolerated well. Thoroughly and repeatedly educated patient on his condition during hosptial sta y. Patient will follow up with PCP ~1/wk for the next month or so to monitor and further educate him on his condition. Patient can use oral lidocaine for emergency situations. GERD Continue home medications Anxiety Continue home medications when possible Austism Spectrum Disorder Patient is high functioning; understands condition. Will get further education of condition in outpatient setting with PCP. (2) GERD (gastroesophageal reflux disease): (3) Anxiety: (4) Autism spectrum disorder: Total Time Total Time Spent Total Time Spent (In Minutes): <30 Discharge Plan Discharge Items Patient Disposition: Home - Self-Care Reason For Visit: SOLID AND LIQUID DYSPHAGIA Discharge Diagnosis: Poor PO intake secondary to dysphagia/globus sensation Activity: Per Instructions section Non-emergency contact: Primary Care Provider Call non-emergency contact if: you have any medication questions and your symptoms worsen Follow-up/Referrals: Zunilda Goodrich DO [Primary Care Provider] - ([facility] will be arranging a follow up appt for you being that the office is closed at your time of discharge. If you are unable to keep the appt made for you, please contact your PCP office to reschedule. Thank you.) Diet: Regular Addtl Attending Provider Instructions: dysphagia/globus sensation (pain and difficulty swallowing with a sticking sensation) -As we discussed, fortunately while your symptoms could fit with an anatomic obstruction of your esophagus (such as scarring, stricture, narrowing, etc.) the upper endoscopy showed no such findings. Additionally, while a dysmotility (uncoordinated squeeze) type problem could also cause some of your symptoms, we are seeing nothing consistent with that either. -This puts your pain and sticking into the category of what we call "functional disorders". What this means is that the sensation is probably triggered by irritated nerves, but fortunately does not come with an actual underlying anatomic or physiologic disease process. The blessing of these kind of problems is that you do not require any sort of major intervention, the unfortunate part is they often have to work themselves out/go away on their ownand mostly we are able to "basketball coach" and support you through it. -Usually with functional disorders, the more the GI tract "sees normalcy" the more things start to fade to normal. To this end, we would definitely want you trying to eat and drink as best you can. It is quite reasonable to go with foods that seems softer, moisture, more slipperybut that is not totally necessary of something else actually sounds good. Likewise, while it is reasonable to take a few days off to rest and recover from being in the hospital, the mind/body component of functional disorders makes it that getting back to work may actually make your esophagus feel more normal, then staying at home and trying to rest/recover longer. To that end, return to work Thursday seems quite reasonable. -It is important to make sure you are getting enough nutritiondoing the math, for your age/height/weight, it will take a little over 2000 saturnino to "break even" (this would be the amount of energy your body needs to keep your heart beating, keep your brain working, keep breathing, etc.). We will want you (probably with your mom's help) to track your calories over the next few weeks, to make sure that you are getting to that 2000-calorie goal. Smart phone apps like "my fitness pal" make it fairly easy since you can just enter what you are eating throughout the day and it keeps her running tally. If you are struggling to get enough calories, if you are starting to see that later in the day you are coming up short, that is where it is very helpful to utilize "cheaters" such as boost or ice cream. As we discussed, boost as a protein shake has about 250 saturnino in 8 ounces of fluid, see her able to get a decent amount of calories without actually having to swallow a whole lot. Further, boost plus and boost extra high-calorie have 350, and 500 saturnino and 8 ounces respectively, making it even easier to "slam"calories in if it is a day that eating has not gone well. -Similarly, to stay hydrated, would like to see you taking a minimum of about 60 ounces of fluid a day. If it is a day that you are struggling, combining your calories and ounces together by drinking things high in calories (again such as boost) can make it easier to get to both goals. -We will have Dr. Griffiths or Dr. Jones take over as your family doc. We would like one of them to see you next week, and then likely weekly for a while to help keep things on track, or troubleshoot if you are in any difficulty. -It also would be quite helpful to see your therapist more oftenespecially if they can help with any pain psychology, in addition to the regular therapy you are getting. -As an emergency, if you are really struggling, we will send a prescription for the lidocaine. You can take up to 15 mL as needed to help quiet the sensation if it is really bad, but try to only use this if it is getting to where you think you might have to go back to the hospital. We do not want to trade 1 abnormal sensation in your esophagus (sticking and pain) for another abnormal sensation (numbness), because that will likely slow down everything truly feeling back to normal. Call [place] [phone] to get established with Dr Griffiths or Dr Jones Pending Studies at Discharge: No Stand-Alone Forms: My [facility], Work/School Release Medications and DC Order Prescriptions: New lidocaine HCl [Lidocaine Viscous] 2 % solution 15 ml PO DAILY PRN (Reason: dysphagia) 14 Days Qty: 100 RF: 4 Continued lamotrigine 150 mg tablet 150 mg PO BID Qty: 60 RF: 5 montelukast [Singulair] 10 mg tablet 10 mg PO QPM Qty: 90 RF: 3 quetiapine [Seroquel XR] 400 mg tablet extended release 24 hr 400 mg PO QPM Qty: 90 RF: 3 guanfacine 1 mg tablet 1 mg PO BID Qty: 180 RF: 3 quetiapine [Seroquel XR] 50 mg tablet extended release 24 hr 100 mg PO QAM Qty: 180 RF: 0 fexofenadine [Allergy Relief (fexofenadine)] 180 mg tablet 180 mg PO DAILY RF: 0 multivitamin Tablet 1 tab PO DAILY RF: 0 famotidine 20 mg tablet 20 mg PO BID RF: 0 trazodone 100 mg tablet 100 mg PO HS RF: 0 hydroxyzine HCl 25 mg Tablet 0 mg PO DIRECTED PRN (Reason: Anxiety) RF: 0 esomeprazole magnesium 40 mg capsule,delayed release(DR/EC) 40 mg PO BID RF: 0 sertraline 50 mg tablet 75 mg PO DAILY RF: 0 Discharge Orders: Discharge Order (Routine); Ordered 11/24/20 Ordered By: Bo Jones Admission Data Admit Date/Time: 11/21/20 02:29 Attending Provider: Tapan Howell Admit Provider: Percy Henry Primary Care Provider: Zunilda Goodrich Other Providers: Jose Angel Campos ; Frantz Hernandez Other Interventions: Discharge Summary Assessment (RN) Last Done: 11/24/20 16:06 Supervising Physician Co-Signing Physician Notes I personally examined the patient and verified all daily points of history and exam, discussed case, and agree with decision making with Dr Jones Was able to eat well. Would like to go home. Reiterated diagnosis and plan. Vitals noted, in general he is awake and alert pleasant no distress, although he appears somewhat irritated with his situation.. HEENT normocephalic atraumatic mucous membranes moist breathing unlabored no accessory muscle use good effort. Skin shows no rashes no pallor or icterus. Abdomen soft without notable tende rness, no notable trigger points either Dysphagia/food/liquid intoleranceEGD without striking findings, while imaging of swallowing was not able to be completed with much diagnostic utility, and dis cussionsspeech therapy did not have any real suspicion of motility issues. All signs strongly point to a functional upper GI issue. Discussed this extensively with patient and mother. Lidocaine seems to help a lot. He is doing much better now. We discussed using this at home for a last resort/"bailout" if needed, but that we would not want to do this on a regular basis. He/mom expressed understanding. Stable for discharge. Close outpatient follow-up. Resident Activity Tracking Resident Involvement: Resident Care Provided Care Provided: Adult Hospital Medicine
--- NOTE | 2020-11-24 18:53 | Billing Data ---
Date of Service November 24, 2020 Coding Level of Care Code 73686 OBS Care - Discharge
== END 2020-11-24 16:30 | disposition home or self-care (01) ==
LOC: 3N 21:42 → ED 21:42 → SUATTDRO 11-21 02:29 → 3N 11-21 04:54